=== PATIENT | female | born 1970 | race Caucasian/White ===

== ENCOUNTER → 2020-08-09 08:13 | Outpatient (CLI) | payer OTHER, SELFPAY ==
--- NOTE | 2020-08-09 08:15 | BI_ITS ---
MAMMOGRAPHY - BILATERAL SCREENING REASON FOR EXAM: Female, 50 years old. Routine annual screening examination. PERTINENT HISTORY: Non-contributory. TECHNIQUE: Digital bilateral breast fartun (3D mammographic acquisition) in the CC and MLO projections. 2-D mediolateral oblique (MLO) and craniocaudad (CC) views of both breasts were obtained. CAD: Full Field Digital Mammography with Computer Added Detection was performed. COMPARISON: Comparison is made with prior study dated 04/01/2015 and 03/06/2014. FINDINGS: Breast Composition: The breasts are extremely dense, which lowers the sensitivity of mammography. There are no dominant masses or suspicious calcifications. No other significant abnormalities are identified. There has been no significant change since the prior study. BI/SCRN MAMM (CAD)W/FARTUN BILAT IMPRESSION: Stable bilateral screening mammogram. Yearly follow-up mammogram recommended. (A) ASSESSMENT CATEGORY: BIRADS Category 1: Negative. A letter regarding these results will be sent to the patient by the facility within 30 days. Approximately 10% of breast cancers are not detected by mammography. A normal mammogram should not delay biopsy of a clinically suspicious abnormality. [id number] Electronically Signed: Logan Martínez MD at 9:21 EDT , Service support ,
== END ==
PROVIDERS: PCP Family Medicine; Referring Provider Obstetrics & Gynecology Gynecology; Visit Provider Obstetrics & Gynecology Gynecology
DX: Z01.419 Encounter for gynecological examination (general) (routine) without abnormal findings (principal); Z12.31 Encounter for screening mammogram for malignant neoplasm of breast
CPT/HCPCS: 77063; 77067

== ENCOUNTER → 2021-08-19 | Outpatient (CLI) | payer OTHER, SELFPAY ==
--- NOTE | 2021-08-19 10:50 | BI_ITS ---
MAMMOGRAPHY - BILATERAL SCREENING REASON FOR EXAM: Female, 51 years old. Routine annual screening examination. PERTINENT HISTORY: Non-contributory. TECHNIQUE: Digital bilateral breast fartun (3D mammographic acquisition) in the CC and MLO projections. 2-D mediolateral oblique (MLO) and craniocaudad (CC) views of both breasts were obtained. CAD: Full Field Digital Mammography with Computer Added Detection was performed. COMPARISON: Comparison is made with prior study dated 08/09/2020 and 03/12/2015. FINDINGS: Breast Composition: The breasts are extremely dense, which lowers the sensitivity of mammography. There are no dominant masses or suspicious calcifications. No other significant abnormalities are identified. There has been no significant change since the prior study. BI/SCRN MAMM (CAD)W/FARTUN BILAT IMPRESSION: Stable bilateral screening mammogram. Yearly follow-up mammogram recommended. (A) ASSESSMENT CATEGORY: BIRADS Category 1: Negative. A letter regarding these results will be sent to the patient by the facility within 30 days. Approximately 10% of breast cancers are not detected by mammography. A normal mammogram should not delay biopsy of a clinically suspicious abnormality. [id number] Electronically Signed: Logan Martínez MD at 12:27 EDT ,
== END | disposition home or self-care (01) ==
LOC: OPBI 10:48
PROVIDERS: PCP Family Medicine
DX: Z12.31 Encounter for screening mammogram for malignant neoplasm of breast (principal)
CPT/HCPCS: 77063; 77067

== ENCOUNTER → 2023-10-05 | Outpatient (CLI) | payer OTHER, SELFPAY ==
--- NOTE | 2023-10-05 16:26 | BI_ITS ---
MAMMOGRAPHY - BILATERAL SCREENING REASON FOR EXAM: Female, 53 years old. Routine annual screening examination. PERTINENT HISTORY: Non-contributory. TECHNIQUE: Digital bilateral breast fartun (3D mammographic acquisition) in the CC and MLO projections. 2-D mediolateral oblique (MLO) and craniocaudad (CC) views of both breasts were obtained. CAD: Full Field Digital Mammography with Computer Added Detection was performed. COMPARISON: Comparison is made with prior study dated August 19, 2021 and August 09, 2020. FINDINGS: Breast Composition: The breasts are extremely dense, which lowers the sensitivity of mammography. There are no dominant masses or suspicious calcifications. No other significant abnormalities are identified. There has been no significant change since the prior study. BI/SCRN MAMM (CAD)W/FARTUN BILAT IMPRESSION: Stable bilateral screening mammogram. Yearly follow-up mammogram recommended. (A) ASSESSMENT CATEGORY: BIRADS Category 1: Negative. A letter regarding these results will be sent to the patient by the facility within 30 days. Approximately 10% of breast cancers are not detected by mammography. A normal mammogram should not delay biopsy of a clinically suspicious abnormality. [id number] Electronically Signed: Logan Martínez MD at 8:27 EDT ,
== END | disposition home or self-care (01) ==
LOC: OPBI 16:24
PROVIDERS: PCP Family Medicine; Referring Provider Obstetrics & Gynecology Gynecology; Visit Provider Obstetrics & Gynecology Gynecology
DX: Z01.419 Encounter for gynecological examination (general) (routine) without abnormal findings (principal); Z12.31 Encounter for screening mammogram for malignant neoplasm of breast
CPT/HCPCS: 77063; 77067

== ENCOUNTER → 2024-08-25 | Outpatient (CLI) | payer OTHER, SELFPAY ==
--- OUTSIDE RECORDS SUMMARY | 2024-08-25 08:06 | XMS RPT_ITS | CCD ---
Author Organization [facility] Inform ion Partnership [facility] Care Team Providers Care Watch Dial Maker Name Role Phone Trini Soto MD Primary Care Provider DEBBI HUITRON MD Attending Unavailable DR TRINI SOTO MD Primary Care Unavailab le Trini Soto MD Primary Care Provider DR TRINI SOTO MD Primary Care Physician Trini Soto MD Primary Care Provider Trini Soto Primary Care Unavailable Debbi Huitron Referring Unavailable Debbi Huitron Attending Unavailable Allergies Allergy Classification Reported Allergen(s) Allergy Type Date of Onset Reaction(s) Facility (4 sources) Penicillins Propensity to adverse reactions 03-20-2004 [facility] (1 source) Penicillin; Translations: [penicillin] Drug Allergy rash [facility] Problems Problem Classification Problem Date Documented Da te Episodic/Chronic Coagulation and hemorrhagic disorders (4 sources) Platelet count below reference range; Translations: [Thrombocytopenia , unspecified] Onset: 03-20-2004 02-24-2018 Chronic Other screening for suspected conditions (not mental disorders or infectious disease) (2 sources) Patient encounter status; Translations: [Encounter for screening mammogram for malignant neoplasm of breast] 09-23-2022 Episodic Results Test Name Value Interpretation Reference Range Facil ity SCRN MAMM (CAD)W/FARTUN Castellanos n 10-05-2023 SCRN MAMM (CAD)W/FARTUN KRAMER [facility] Imaging Services [address] [place] [id number] SCRN MAMM (CAD)W/FARTUN KRAMER MR#: [id number] Acct: [id number] Name: TWILA LINDQUIST Rep #: [id number] : 1970 F 53 From: Logan cespedes MD PCP: Dr. Trini Soto MD Status: REG [facility] Study: SCRN MAMM (CAD)W/FARTUN BILAT Date of Exam: 09/09 08/31 Exam# [id number] Ordering Dr: Debbi Huitron MD [id number] MAMMOGRAPHY - BILATERAL SCREENING REASON FOR EXAM: Female, 53 years old. Routine annual screening examination. PERTINENT HISTORY: Non-contributory. TECHNIQUE: Digital bilateral breast fartun (3D mammographic acquisition) in the CC and MLO projections. 2-D mediolateral oblique (MLO) and craniocaudad (CC) views of both breasts were obtained. CAD: Full Field Digital Mammography with Computer Added Detection was performed. COMPARISON: Comparison is made with prior study dated August 19, 2021 and August 09, 2020. FINDINGS: Breast Composition: The breasts are extremely dense, which lowers the sensitivity of mammography. There are no dominant masses or suspicious calcifications. No other significant abnormalities are identified. There has been no significant change since the prior study. BI/SCRN MAMM (CAD)W/FARTUN BILAT IMPRESSION: Stable bilateral screening mammogram. Yearly follow-up mammogram recommended. (A) ASSESSMENT CATEGORY: BIRADS Category 1: Negative. A letter regarding these results will be sent to the patient by the facility within 30 days. Approximately 10% of breast cancers are not detected by mammography. A normal mammogram should not delay biopsy of a clinically suspicious abnormality. [id number] Electronically Signed: Logan Martínez MD at 8:27 EDT , CC: Dr. Debbi Huitron MD; Dr. Trini Soto MD Manager Camp: Signed [facility] 01-30-2022 CNPN Telephone (FAMPWS) TWILA LINDQUIST ([id number]) 1970 F Date Time Provider Department 01/30/22 [facility] During your visit today, we recorded the following information about you: Lilliam Ness RN 01/30/2022 3:07 PM Addendum FYI-Patient calling and states she tested positive for covid using a home test today. She reports her symptoms began today and she has sinus pressure and a temperature of 100.8. Denies cough, SOB, chest pain, sore throat, body aches, nausea, vomiting or diarrhea. Has been vaccinated. Exercised this morning. Patient had questions regarding paxlovid and information reviewed. Pt has decided she is not interested in paxlovid at this time however has been encouraged to contact PCP office in the next few days for any questions, or if symptoms worsen, and a VV can be scheduled to discuss options. CDC isolation guidelines and home care information were reviewed also. AMENA Marti MD 01/30/2022 3:32 PM Signed Noted; I agree with symptomatic treatment; she does not have any medical conditions that would make her high risk and qualified for paxlovid treatment Trini Soto MD Allergies As of Date: 01/30/2022 Noted Allergy Reaction PENICILLINS 03/20/2004 Date Reviewed: 08/26/2021 Reviewed by: Reny Trevizo Ma - Fully Assessed Reason for Visit: Patient Update [1234] Meds Comments as of 08/26/2021: Takes Probiotic daily. Problem List As Of Date 01/30/2022 Noted Resolved Thrombocytopenia, unspecified (HCC) [D69.6] 03/20/2004 Encounter Status:Closed by PIYUSH SINGH on 01/30/22 Normal [facility] Vital Signs Date Time Vital Sign Value Performing Clinician Marla zavaleta 08-26-2021 09:08-0400 Body height 170.8 cm Trini Soto MD Work Phone: [facility] 08-26-2021 09:08-0400 Body weight 58.42 kg Trini Soto MD Work Phone: [facility] 08-26-2021 09:08-0400 Diastolic blood pressure 74 mm[Hg] Trini Soto MD Work Phone: [facility] 08-26-2021 09:08-0400 Heart rate 64 /min Trini Soto MD Work Phone: [facility] 08-26-2021 09:08-0400 Respiratory rate 12 /min Trini Soto MD Work Phone: [facility] 08-26-2021 09:08-0400 Systolic blood pressure 102 mm[Hg] Trini Soto MD Work Phone: [facility] Encounters Encounter Date Encounter Type Care Provider Facility Start: 10-15-2023 Encounter for gynecological examination (general) (routine) without abnormal findings Debbi Huitron [facility] Start: 10-05-2023 End: 10-05-2023 ambulatory Tirni Soto Facility:[facility] Start: 09-01-2023 ambulatory Trini nolan MD Work Phone: [facility] Start: 10-02-2022 End: 10-02-2022 Patient encounter procedure DEBBI HUITRON MD [facility] Start: 09-23-2022 ambulatory Trini nolan MD Work Phone: [facility] Start: 09-14-2022 ambulatory DEBBI HUITRON MD Facilit y:B Start: 01-30-2022 Telephone encounter Trini so MD Work Phone: [facility] Comment on above: Patient Update Start: 08-26-2021 End: 08-26-2021 Patient encounter procedure Trini Soto MD Work Phone: [facility] [place] Comment on above: Wellness examination (Primary Dx) Start: 08-26-2021 End: 08-26-2021 Patient encounter status Trini Soto MD Work Phone: [facility] [place] Start: 08-19-2021 End: 08-19-2021 Patient encounter procedure [facility] Procedures Date Procedure Procedure Detail Performing Clinician Start: 08-26-2021 Adult depression scr eening assessment Trini Soto MD Work Phone: Start: 08-26-2021 Lipid 1996 panel - S justice or Plasma Trini Soto MD Work Phone: Start: 08-19-2021 End: 08-19-2021 Mammography Trini Soto MD Work Phone: Start: 12-15-2019 Colonoscopy Trini mueller MD Work Phone: None (qualifier value) GRAY HUITRON MD Plan of Treatment Date Care Activity Detail Author Start: 12-14-2029 Colonoscopy COLONOSCOPY [facility] Start: 12-14-2029 COLORECTAL CANCER SCREENING COLORECTAL CANCER SCREENING [facility] Start: 12-14-2029 Screening for malign ant neoplasm of colon [facility] Start: 03-01-2028 Urine microalbumin profile [facility] Start: 08-26-2026 Lipid panel Lipid Screening [facility] Start: 08-26-2026 LIPID SCREEN LIPID SCREEN [facility] Start: 08-26-2024 [facility]ABET[facility] Start: 08-26-2024 Diabetes Screening Diabetes Screenin g [facility] Start: 07-30-2024 HPV TESTING HPV TESTING [facility] Start: 07-26-2024 PAP TESTING PAP TESTING [facility] Start: 10-10-2023 Influenza vaccination Influenza Vacc ine (#1) [facility] Start: 03-19-2023 LIPID SCREEN LIPID SCREEN [facility] Start: 10-09-2022 Covid-19 Vaccine (5 - 2023-24 season) Covid-19 Vaccine ( season) [facility] Start: 10-09-2022 Influenza vaccination INFLUENZA (#1) [facility] Start: 08-26-2022 Adult depression screening assessment DEPRESSION SCREENING [facility] Start: 08-26-2022 HEPATITIS C SCREENING HEPATITIS C SC [facility] Comment on above: Postponed from 05/20 (Declined at this time) Start: 08-19-2022 Mammography MAMMOGRAM [facility] Start: 08-19-2022 Screening for malign ant neoplasm of breast Mammogram Screening [facility] Start: 07-26-2022 Screening for malign ant neoplasm of cervix Cervical Cancer Screening [facility] Start: 02-08-2022 DEPRESSION ASSESSMENT DEPRESSION ASS ESSMENT [facility] Start: 10-09-2021 Influenza vaccination INFLUENZA (#1) [facility] Start: 09-02-2021 COVID-19 VACCINE (5 - Booster for Pfizer series) COVID-19 VACCINE (5 - Booster for Pfizer series) [facility] Start: 09-02-2021 COVID-19 VACCINE (5 - Pfizer series) COVID-19 VACCINE (5 - Pfizer series) [facility] Start: 08-26-2021 End: 10-26-2021 25-hydroxyvitamin D3 [Mass/volume] in Serum or Plasma [facility] Work Phone: Comment on above: Expected: 08/26/2021 , Expires: 10/26/2021 Start: 08-26-2021 End: 10-26-2021 CBC W Auto Differential panel - Blood [facility] Work Phone: Comment on above: Expected: 08/26/2021 , Expires: 10/26/2021 Start: 08-26-2021 End: 10-26-2021 Comprehensive metabolic 2000 panel - Serum or Plasma [facility] Work Phone: Comment on above: Expected: 08/26/2021 , Expires: 10/26/2021 Start: 08-26-2021 End: 10-26-2021 Lipid 1996 panel - Serum or Plasma [facility] Work Phone: Comment on above: Expected: 08/26/2021 , Expires: 10/26/2021 Start: 03-19-2021 DIABETES SCREEN DIABETES SCREEN [facility] Start: 02-08-2021 DEPRESSION ASSESSMENT DEPRESSION ASS ESSMENT [facility] Start: 2018 SHINGRIX VACCINE (1 of 2) SHINGRIX VACCINE (1 of 2) [facility] Start: 2013 COLOGUARD (FIT-DNA) COLOGUARD (FIT-D NA) [facility] Start: [address] COLONOGRAPHY [facility] Start: 2013 FECAL OCCULT BLOOD FECAL OCCULT BLOO D [facility] Start: 2013 Screening for malign ant neoplasm of colon [facility] Start: 2013 SIGMOIDOSCOPY SIGMOIDOSCOPY [facility] Start: 05-21-1987 Hepatitis B Vaccine (1 of 3 - 19+ 3-dose series) Hepatitis B Vaccine (1 of 3 - 19+ 3-dose series) [facility] Start: 1986 Anxiety Screening Anxiety Screening [facility] Start: 1986 Depression Screening Depression Scre ening [facility] Start: 1986 HEPATITIS C SCREENING HEPATITIS C SC [facility] Start: 1986 Hepatitis C screening Hepatitis C [facility] Start: 1970 HEPATITIS B (1 of 3 - 3-dose series) HEPATITIS B (1 of 3 - 3-dose series) [facility] End: 09-30-2024 DBT Breast - bilateral screening CRISPIN SCREENING W FARTUN Radiology Routine Encounter for screening mammogram for breast cancer 1 Occurrences starting 09/01/2023 until 09/30/2024 [facility] Work Phone: Comment on above: 1 Occurrences starti ng 09/01/2023 until 09/30/2024 End: 10-23-2023 CRISPIN SCREENING CRISPIN SCREENING Radiology Routine Encounter for screening mammogram for breast cancer 1 Occurrences starting 09/23/2022 until 10/23/2023 [facility] Work Phone: Comment on above: 1 Occurrences starti ng 09/23/2022 until 10/23/2023 Immunizations Immunization Date Immunization Notes Care Provider Christin barney 12-25-2019 influenza virus vaccine, unspecified formulation Trini Soto MD Work Phone: [facility] 12-07-2019 influenza, seasonal, injectable Trini Soto MD Work Phone: [facility] 03-01-2018 tetanus toxoid, reduced diphtheria toxoid, and acellular pertussis vaccine, adsorbed Trini Soto MD Work Phone: [facility] Work Phone: Payers Date Payer Category Payer Self-pay [id number] 2023 Unknown [id number] 2022 Unknown [id number] 2019 Unknown [employer] PPO [id number] 2019-Present [phone] [address] [place] [address] PPO [id number] 2019 Unknown [id number] 1970 Unknown [id number] Private Health Insurance [facility] [id number] Unknown [id number] Unknown 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 (finding) [facility] Start: 1970 Sex Assigned At Not on file [facility] Start: 08-16-2021 End: 08-26-2021 Exposure to SARS-CoV-2 (event) Not sure [facility] Start: 1970 Sex Assigned At Female [facility] Start: 02-24-2018 Tobacco use and exposure Smoke less tobacco non-user [facility] Start: 08-26-2021 End: 03-06-2022 History of Social function [facility] Start: 08-26-2021 End: 03-06-2022 Tobacco use panel [facility] Adult Depression Scr eening Assessment 0 [facility] Clinical Notes 08-26-2021 to 09-23-2022 Telephone Encounter - Trini Soto MD - 01/30/2022 3:31 PM ESTTelephone Encounter - Lilliam Ness RN - 01/30/2022 3:00 PM Shabbir Soto MD - 08/26/2021 9:00 AM EDT Note Date & Type Note Facility 09-23-2022 Note Patient Outreach (IN TMMN) TWILA LINDQUIST ([id number]) 1970 F Date Time Provider Department 09/23/22 TRINI SOTO During your visit today, we recorded the following information about you: Allergies As of Date: 09/23/2022 Noted Allergy Reaction PENICILLINS 03/20/2004 Date Reviewed: 08/26/2021 Reviewed by: Reny Trevizo Ma - Fully Assessed Visit Diagnosis:Encounter for screening mammogram for breast cancer [Z12.31] Order(s):CRISPIN SCREENING [[id number]] Order #: [id number] FUTURE Meds Comments as of 08/26/2021: Takes Probiotic daily. Problem List As Of Date 09/23/2022 Noted Resolved Thrombocytopenia, unspecified (HCC) [D69.6] 03/20/2004 Encounter Status:Closed by LISA ROMAN on 09/28/22 [facility] 01-30-2022 Miscellaneous Notes Formattin g of this note might be different from the original. Noted; I agree with symptomatic treatment; she does not have any medical conditions that would make her high risk and qualified for paxlovid treatment Trini Soto MD FYI-Patient calling and states she tested positive for covid using a home test today. She reports her symptoms began today and she has sinus pressure and a temperature of 100.8. Denies cough, SOB, chest pain, sore throat, body aches, nausea, vomiting or diarrhea. Has been vaccinated. Exercised this morning. Patient had questions regarding paxlovid and information reviewed. Pt has decided she is not interested in paxlovid at this time however has been encouraged to contact PCP office in the next few days for any questions, or if symptoms worsen, and a VV can be scheduled to discuss options. CDC isolation guidelines and home care information were reviewed also. Lilliam Ness RN documented in this encounter [facility] 08-26-2021 History of Presen t illness Narrative Chief Complaint Patient presents with: Wellness HPI Twila Lindquist is a 51 year old female who presents here today for physical. Pt has not been seen since Feb [address] Galloway. Has not seen Dr. Soto since 2008. Requesting labs for her Wellness Exam. Pt recently earned a Masters in , will be starting a new job at [employer] ([employer]) in September. Pt has one son age 19, starting College in [place] for [employer]y GI/Uro - No bowel, Gi, or urinary issues. Takes daily OTC Probiotic. Colonoscopy done by Dr. Serrano Dec 2019. Possible FHx of Colon Cancer. Cardio - Denies any chest pain, dizziness, or SOB. 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 Debbi Cason at [place], seen last week why physical exam. Had Pap/HPV 2019. Mammogram done last week as well. It was suggested by Dr. Cason that she have labs and be checked for Vitamin D but pt is out in the sun a lot. Diet/Exercise - Very active and always trying to stay fit. Pt runs, walking, hikes and does bar classes. Does try to watch her diet, avoid gluten, breads and sweets. Eats a lot of greens/vegetables and some fruits. Does eat some meat, rare red meat. Pt at this time states that she feels she sleeps well. Notes stress is currently well managed, notes this will probably increase with starting her new job in September. Denies any depression symptoms. HM - Declines Hep C Screening. Declines Depression symptoms. Past medical history, appointments, medications, allergies reviewed. Previous Medical History PAST MEDICAL HISTORY Diagnosis Date NEGATIVE MEDICAL HISTORY Previous Surgical History PAST SURGICAL HISTORY Procedure Laterality Date COLONOSCOP W/ OR W/O [facility] SPEC 12/15/2019 Colonoscopy NONE Family History FAMILY HISTORY Problem Relation Age of Onset Hypertension Mother Lipids Father Hypertension Father Cancer Paternal Grandmother Patient Allergies ALLERGIES Allergen Reactions Penicillins Current Medications No current outpatient medications on file prior to visit. No current facility-administered medications on file prior to visit. Social History Social History Tobacco Use Smoking status: Never Smoker Smokeless tobacco: Never Used Substance Use Topics Alcohol use: No Drug use: No EXAM: BP 102/74 (BP Site: Left Arm, BP Position: Sitting, BP Cuff Size: Regular Adult) Pulse 64 Resp 12 Ht 170.8 cm (5' 7.25) Wt 58.4 kg (128 lb 12.8 oz) LMP 11/14/2014 BMI 20.02 kg/m General Appearance: Well appearing, alert, in no acute distress, well-hydrated, well nourished.. Neck: Supple, no adenopathy; thyroid symmetric, normal size, no bruits. Lungs: Lungs clear to auscultation. No wheezing, rhonchi, rales.. Heart: RRR without murmur, gallop, or rubs. No ectopy. Abdomen: Normal abdominal exam, Abdomen soft, non-tender. Bowel sounds normal. No masses, organomegaly. Health Maintenance List DEPRESSION SCREENING Never done - Declines HEPATITIS C SCREENING Never done - Declines PAP TESTING Never done - Completed HPV TESTING Never done - Completed SHINGRIX VACCINE(1 of 2) Never done COVID-19 VACCINE(3 - Booster for Pfizer series) due on 10/16/2020 DIABETES SCREEN due on 03/19/2021 INFLUENZA(1) due on 10/09/2021 MAMMOGRAM due on 08/19/2022 LIPID SCREEN due on 03/19/2023 DTAP,TDAP,TD(2 - Td or Tdap) due on 03/01/2028 COLORECTAL CANCER SCREENING due on 12/14/2029 HIV SCREENING Completed Data reviewed None ASSESSMENT/PLAN: 1. Wellness examination - ICD9: V70.0, ICD10: Z00.00 (primary diagnosis) - Counseled on healthy diet and regular exercise. - Check labs fasting Complete fasting labs, will call with results. Follow up in 2-3 years I agree with the Chief Complaint, ROS, and Past Histories independently gathered by the clinical community support worker and the remaining scribed note accurately describes my personal service to the patient. Trini Soto MD The documentation for this note was completed by Reny Trevizo Ma acting as scribe for Trini Soto MD. August 26, 2021 9:15 AM. Reny Trevizo Ma documented in this encounter [facility] Evaluation + Plan note No data available for this section [facility] Evaluation note Diagnosis Wellness examination- Primary documented in this encounter [facility] noteNo assessment information availableWSelect [facility] Work Phone: Evaluation note* Diagnosis Encounter for screening mammogram for breast cancer documented in this encounter [facility] note* Diagnosis Encounter for screening mammogram for breast cancer [facility] No data available for this section [facility] Progress note No data available for this section [facility] Reason for referral (narrative)* Diagnostic Procedure Only (Routine) - Pending Review Specialty Diagnoses / Procedures Referred By Contac t Referred To Contact [facility] Diagnoses Encounter for screening mammogram for breast cancer Procedures CRISPIN SCREENING SCREENING MAMMOGRAPHY BI 2-VIEW BREAST INC CAD Trini Soto MD [address] [place] [address] [facility] [address] [place] [address] Referral ID Status Reason Start Date Expiration Date Visits Requested Visits Authorized [id number] Pending Review Auto-Generat ed Referral 09/23/2022 10/23/2023 1 1 [facility] Diagnostic Procedure Only (Routine) - New Request Specialty Diagnoses / Procedures Referred By Contac t Referred To Contact [facility] Diagnoses Encounter for screening mammogram for breast cancer Procedures CRISPIN SCREENING W FARTUN SCREENING DIGITAL BREAST TOMOSYNTHESIS BI SCREENING MAMMOGRAPHY BI 2-VIEW BREAST INC Trini Jeffers MD [address] [place] [address] [facility] [address] [place] [address] Referral ID Status Reason Start Date Expiration Date Visits Requested Visits Authorized [id number] New Request Auto-Generat ed Referral 09/01/2023 09/30/2024 1 1 [facility] Advance Directives No Advanced Directives Records FoundDocuments on File Type Date Recorded Patient Front End Technician Expl anation Advance Directive(s) 12/15/2019 6:54 AM Advance Directive(s) 12/08/2019 1:25 PM Chief Complaint and Reason for Visit Chief Complaint SCREENING Summary Purpose Family History No Family History Records FoundNo Family History Records Found No data available for this section No Family History Records Found Additional Source Comments Source Comments (unrecognize d section and content) In the event this informatio n is protected by the Federal Confidentiality of Alcohol and Drug Abuse Patient Records regulations: The Federal rules restrict any use of the information to criminally investigate or prosecute any alcohol or drug abuse patient.[facility] the event this information is protected by the Federal Confidentiality of Alcohol and Drug Abuse Patient Records regulations: The Federal rules restrict any use of the information to criminally investigate or prosecute any alcohol or drug abuse patient.[facility] the event this information is protected by the Federal Confidentiality of Alcohol and Drug Abuse Patient Records regulations: The Federal rules restrict any use of the information to criminally investigate or prosecute any alcohol or drug abuse patient.[facility] the event this information is protected by the Federal Confidentiality of Alcohol and Drug Abuse Patient Records regulations: The Federal rules restrict any use of the information to criminally investigate or prosecute any alcohol or drug abuse patient.[facility] Reason for Visit (unrecogniz ed section and content) Reason Comments Wellness Specialty Diagnoses / Procedures Referred By Contac t Referred To Contact Family Practice / FAMILY MEDICINE Diagnoses Annual physical exam Annual / Physical Procedures OFFICE/OUTPATIENT ESTABLISHED MOD MDM 30-39 MIN 4C MD David Gold, Trini Villalba MD [address] [place] [address] Referral ID Status Reason Start Date Expiration Date Visits Re quested Visits Authorized [id number] Closed 08/26/2021 02/07/2022 1 1 Reason Comments Patient Update Care Teams (unrecognized sec tion and content) Watch Dial Maker Relationship Specialty Start Date End Date Trini Soto MD [address], [place] [id number] PCP - General 10/25/08 Watch Dial Maker Relationship Specialty Start Date End Date Trini Soto MD [address] [place] [address] PCP - General 10/25/08 Watch Dial Maker Relationship Specialty Start Date End Date Trini Soto MD [address] [place] [address] PCP - General 10/25/08 Watch Dial Maker Relationship Specialty Start Date End Date Trini Soto MD [address], [place] [id number] PCP - General 10/25/08 Goals (unrecognized section and content) Goals may be documented in a n alternate sectionGoals may be documented in an alternate sectionGoals may be documented in an alternate section No data available for this section INFORMATION SOURCE (unrecogn ized section and content) DATE CREATED AUTHOR 09/14/2022 [facility] ([place]) DATE CREATED AUTHOR AUTHOR'S ORGANIZ ATION 09/28/2022 [facility] DATE CREATED AUTHOR AUTHOR'S ORGANIZ ATION 10/17/2023 [facility] FOR RECORDS PERTAINING TO PATIENTS WHO ARE OR HAVE BEEN ENROLLED IN A CHEMICAL DEPENDENCY/SUBSTANCEABUSE PROGRAM, SOME INFORMATION MAY BE OMITTED. This clinical summary was aggregated from multiple sources. Caution should be exercised in using it in the provision of clinical care. This summary normalizes information from multiple sources, and as a consequence, information in this document may materially change the coding, format and clinical context of patient data. In addition, data may be omitted in some cases. CLINICAL DECISIONS SHOULD BE BASED ON THE PRIMARY CLINICAL RECORDS. [facility] [employer] [facility]. provides no warranty or guarantee of the accuracy or completeness of information in this document.
[2024-08-25 10:43] LABS: Hematocrit 38.8 % (37-47); Hemoglobin 12.8 g/dL (12.0-15.0); Mean Corp Hgb Conc 33.0 g/dL (32-36); Mean Corpuscular Volume 94.2 fL (81-99); Mean Platelet Vol. 11.8 fl (6.2-12.0); Platelet Count 143 K/mm3 (150-450); RBC Distribution Width CV 13.8 % (11.6-14.6); RBC Distribution Width SD 48.0 fl (35.1-43.9); Red Blood Count 4.12 M/mm3 (4.2-5.4); White Blood Count 4.9 K/mm3 (4.4-11.0)
[2024-08-25 12:27] LABS: AST(SGOT) 17 U/L (<=31); Alanine Aminotransfer ALT/SGPT 16 U/L (<=34); Albumin, Serum 4.4 g/dL (3.5-5.0); Alkaline Phosphatase 47 U/L (35-104); Anion Gap 10 (5-15); BUN 14 mg/dL (4-19); BUN/Creat Ratio 16.1 RATIO (10-20); Calcium,Total 9.6 mg/dL (7.6-11.0); Carbon Dioxide 25.4 mmol/L (21.0-32.0); Chloride 106 mmol/L (98-108); Cholesterol 246 mg/dL (<=200); Globulin 2.6 g/dL (2.2-4.2); Glucose 89 mg/dL (70-99); Low Density Lipoprotein Calc. 147 mg/dL; Potassium 4.1 mmol/L (3.3-5.1); Triglycerides 44 mg/dL; Very Low Density Lipoprotein 9 mg/dL (5-40); cholesterol:hdl ratio screen 2.73
[2024-08-28 12:08] LABS: Vitamin D 1,25-Dihydroxy 35.2 pg/mL (24.8-81.5)
== END | disposition home or self-care (01) ==
LOC: MTLAB 07:46
PROVIDERS: PCP Family Medicine; Referring Provider Family Medicine; Visit Provider Family Medicine
DX: Z01.419 Encounter for gynecological examination (general) (routine) without abnormal findings (principal); Z13.1 Encounter for screening for diabetes mellitus; L65.9 Nonscarring hair loss, unspecified; Z13.220 Encounter for screening for lipoid disorders
CPT/HCPCS: 36415; 80053; 80061; 82652; 84443; 85027

== ENCOUNTER → 2025-02-06 | Outpatient (CLI) | payer OTHER, SELFPAY ==
--- NOTE | 2025-02-06 07:37 | BI_ITS ---
EXAM: SCRN MAMM (CAD)W/FARTUN BILAT DATE: 02/06/2025 CLINICAL HISTORY: F, Age 54 y/o , SCREENING Routine screening TECHNIQUE: Procedure Code: [id number] Modality: MG Procedure: SCRN MAMM (CAD)W/FARTUN BILAT COMPARISON: Prior exam(s) dated 10/05/2023. FINDINGS: TISSUE DENSITY: The breasts are heterogeneously dense, which may obscure small masses. Bilateral Breast Mammographic Findings: No significant masses, calcifications or other abnormalities are identified. No interval change BI/SCRN MAMM (CAD)W/FARTUN BILAT IMPRESSION: Stable screening mammogram, no suspicious findings OVERALL FINAL ASSESSMENT BI-RADS 1: NEGATIVE. RECOMMENDATION: Routine annual follow-up in 1 Year Additional Recommendation none A letter with findings and recommendations will be mailed to the patient. Reading Location: [id number]
--- OUTSIDE RECORDS SUMMARY | 2025-02-06 07:42 | XMS RPT_ITS | CCD ---
Author Organization [facility] Care Team Providers Care Swimming Pool Serviceperson Name Role Phone Trini Soto MD Primary Care Provider DEBBI HUITRON MD Attending Unavailable DR TRINI SOTO MD Primary Care Unavailab le Trini Soto MD Primary Care Provider DR TRINI SOTO MD Primary Care Physician Trini Soto MD Primary Care Provider [phone] Dr. 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, Bj Unavailable Allergies Allergy Classification Reported Allergen(s) Allergy Type Date of Onset Reaction(s) Facility (4 sources) Penicillins Propensity to adverse reactions 03-20-2004 [facility] (1 source) Penicillin; Translations: [penicillin] Drug Allergy rash [facility] (1 source) Penicillins Propensity to adverse reactions 03-20-2004 [facility] Problems Active Problems Problem Classification Problem Date Documented Da te Episodic/Chronic Coagulation and hemorrhagic disorders (5 sources) Platelet count below reference range; Translations: [Thrombocytopenia , unspecified] Onset: 03-20-2004 02-24-2018 Chronic Other screening for suspected conditions (not mental disorders or infectious disease) (3 sources) Patient encounter status; Translations: [Encounter for screening mammogram for malignant neoplasm of breast] 09-23-2022 Episodic Past or Other Problems Problem Classification Problem Date Documented Da te Episodic/Chronic Unclassified (1 source) Patient encounter status 08-01-2024 Results Test Name Value Interpretation Reference Range Facility Vitamin D 1,25-Dihydroxyon 0 08-28-2024 VIT D 1,25 DIHY 35.2 pg/mL Normal 24.8-81.5 [facility] Comment on above: Order Comment: Order Date: 08/21/24 Order Info: [id number] - [id number] Result Comment: Perf ormed at: - [facility] [address] [id number] [place] Boss: Bebeto Valdez MD, Phone: [phone] Performed By: #### L 4450.0960 #### [facility] [address] [place], [place], [id number] Anion gap in Serum or Plasma Ordered By: Vik Zimmer on 08-25-2024 Anion gap [Moles/Vol] 10 mmol/L 5-15 [facility] BUN/creatinine ratioOrdered By: Vik Zimmer on 08-25-2024 Urea nitrogen/Creatinine [Mass ratio] 16.1 mg/mg 10-20 [facility] Bilirubin, totalOrdered By: [facility] on 08-25-2024 Bilirubin [Mass/Vol] 0.29 mg/dL 0.00-1.30 [facility] CBC-Complete Blood Cnt No Di ffon 08-25-2024 Erythrocyte distribution width (RBC) [Ratio] 13.8 % Normal 11.6-14.6 [facility] Comment on above: Order Comment: Order Date: 08/21/24 Order Info: [id number] - CBC Performed By: #### L 500.4050, L100.0500, L500.4100, L501.9520 #### [facility] [address] [place], [place], [address] Hematocrit (Bld) [Volume fraction] 38.8 % Normal 37-47 [facility] Comment on above: Order Comment: Order Date: 08/21/24 Order Info: [id number] - CBC Performed By: #### L 500.4050, L100.0500, L500.4100, L501.9520 #### [facility] [address] [place], [address] Hemoglobin (Bld) [Mass/Vol] 12.8 g/dL Normal 12.0-15.0 [facility] Comment on above: Order Comment: Order Date: 08/21/24 Order Info: [id number] - CBC Performed By: #### L 500.4050, L100.0500, L500.4100, L501.9520 #### [facility] [address] [place], [address] MCH (RBC) [Entitic mass] 31.1 pg Normal 27.0-32.0 [facility] Comment on above: Order Comment: Order Date: 08/21/24 Order Info: [id number] - CBC Performed By: #### L 500.4050, L100.0500, L500.4100, L501.9520 #### [facility] [address] [place], [address] MCHC (RBC) [Mass/Vol] 33.0 g/dL Normal 32-36 [facility] Comment on above: Order Comment: Order Date: 08/21/24 Order Info: [id number] - CBC Performed By: #### L 500.4050, L100.0500, L500.4100, L501.9520 #### [facility] [address] [place], [address] MCV (RBC) [Entitic vol] 94.2 fL Normal 81-99 [facility] Comment on above: Order Comment: Order Date: 08/21/24 Order Info: [id number] - CBC Performed By: #### L 500.4050, L100.0500, L500.4100, L501.9520 #### [facility] [address] [place], [address] Platelet mean volume (Bld) [Entitic vol] 11.8 fL Normal 6.2-12.0 [facility] Comment on above: Order Comment: Order Date: 08/21/24 Order Info: [id number] - CBC Performed By: #### L 500.4050, L100.0500, L500.4100, L501.9520 #### [facility] [address] [place], [address] Platelets (Bld) [#/Vol] 143 10*3/uL Low 150-450 [facility] Comment on above: Order Comment: Order Date: 08/21/24 Order Info: [id number] - CBC Performed By: #### L 500.4050, L100.0500, L500.4100, L501.9520 #### [facility] [address] [place], [address] RBC (Bld) [#/Vol] 4.12 10*6/uL Low 4.2-5.4 [facility] Comment on above: Order Comment: Order Date: 08/21/24 Order Info: [id number] - CBC Performed By: #### L 500.4050, L100.0500, L500.4100, L501.9520 #### [facility] [address] [place], [address] RDW SD 48.0 fl High 35.1-43.9 [facility] Comment on above: Order Comment: Order Date: 08/21/24 Order Info: [id number] - CBC Performed By: #### L 500.4050, L100.0500, L500.4100, L501.9520 #### [facility] [address] [place], [address] WBC (Bld) [#/Vol] 4.9 10*3/uL Normal 4.4-11.0 [facility] Comment on above: Order Comment: Order Date: 08/21/24 Order Info: [id number] - CBC Performed By: #### L 500.4050, L100.0500, L500.4100, L501.9520 #### [facility] [address] [place], [place], [id number] Calculated very low density lipoprotein (VLDL) cholesterol measurementOrdered By: Vik Zimmer on 08-25-2024 Calculated very low density lipoprotein (VLDL) cholesterol measurement 9 mg/dL 5-40 [facility] Carbon dioxide, total [Moles /volume] in Central venous bloodOrdered By: Vik Zimmer on 08-25-2024 CO2 [Moles/Vol] 25.4 mmol/L 21.0-32.0 [facility] Chloride assayOrdered By: Lenin Zimmer on 08-25-2024 Chloride [Moles/Vol] 106 mmol/L 98-108 [facility] Comprehensive Metabolic Prof ilon 08-25-2024 Albumin [Mass/Vol] 4.4 g/dL Normal 3.5-5.0 [facility] Comment on above: Order Comment: Order Date: 08/21/24 Order Info: [id number] - CMP Order Info: [id number] - LIPID Order Info: [id number] - TSH Performed By: #### L 500.4050, L100.0500, L500.4100, L501.9520 #### [facility] [address] [place], [place], [id number] Albumin/Globulin [Mass ratio] 1.7 {ratio} Normal 0.9-2.4 [facility] Comment on above: Order Comment: Order Date: 08/21/24 Order Info: [id number] - CMP Order Info: [id number] - LIPID Order Info: [id number] - TSH Performed By: #### L 500.4050, L100.0500, L500.4100, L501.9520 #### [facility] [address] [place], [place], [id number] ALK PHOS 47 U/L Normal 35-104 [facility] Comment on above: Order Comment: Order Date: 08/21/24 Order Info: [id number] - CMP Order Info: [id number] - LIPID Order Info: [id number] - TSH Performed By: #### L 500.4050, L100.0500, L500.4100, L501.9520 #### [facility] [address] [place], [address] ALT [Catalytic activity/Vol] 16 U/L Normal <=34 [facility] Comment on above: Order Comment: Order Date: 08/21/24 Order Info: [id number]- - CMP Order Info: - LIPID Order Info: 3 - TSH Performed By: #### L 500.4050, L100.0500, L500.4100, L501.9520 #### [facility] [address] [place], [address] AST [Catalytic activity/Vol] 17 U/L Normal <=31 [facility] Comment on above: Order Comment: Order Date: 08/21/24 Order Info: [id number] - CMP Order Info: [id number] - LIPID Order Info: 3 - TSH Performed By: #### L 500.4050, L100.0500, L500.4100, L501.9520 #### [facility] [address] [facility] [place], [address] Bilirubin [Mass/Vol] 0.29 mg/dL Normal 0.00-1.30 [facility] Comment on above: Order Comment: Order Date: 08/21/24 Order Info: [id number] - CMP Order Info: [id number] - LIPID Order Info: 3 - TSH Performed By: #### L 500.4050, L100.0500, L500.4100, L501.9520 #### [facility] [address] [facility] [place], [address] BUN/CRE 16.1 RATIO Normal 10-20 [facility] Comment on above: Order Comment: Order Date: 08/21/24 Order Info: [id number] - CMP Order Info: [id number] - LIPID Order Info: 3 - TSH Performed By: #### L 500.4050, L100.0500, L500.4100, L501.9520 #### [facility] [address] [place], [address] Calcium [Mass/Vol] 9.6 mg/dL Normal 7.6-11.0 [facility] Comment on above: Order Comment: Order Date: 08/21/24 Order Info: 785- - CMP Order Info: [id number] - LIPID Order Info: [id number] - TSH Performed By: #### L 500.4050, L100.0500, L500.4100, L501.9520 #### [facility] [address] [place], [address] Chloride [Moles/Vol] 106 mmol/L Normal 98-108 [facility] Comment on above: Order Comment: Order Date: 08/21/24 Order Info: [id number] - CMP Order Info: [id number] - LIPID Order Info: 3 - TSH Performed By: #### L 500.4050, L100.0500, L500.4100, L501.9520 #### [facility] [address] [place], [address] CO2 [Moles/Vol] 25.4 mmol/L Normal 21.0-32.0 [facility] Comment on above: Order Comment: Order Date: 08/21/24 Order Info: 07 - CMP Order Info: [id number] - LIPID Order Info: 63 - TSH Performed By: #### L 500.4050, L100.0500, L500.4100, L501.9520 #### [facility] [address] [place], [address] Creatinine [Mass/Vol] 0.85 mg/dL Normal 0.70-1.20 [facility] Comment on above: Order Comment: Order Date: 08/21/24 Order Info: 0786- - CMP Order Info: [id number] - LIPID Order Info: [id number] - TSH Performed By: #### L 500.4050, L100.0500, L500.4100, L501.9520 #### [facility] [address] [place], [address] GAP 10 Normal 5-15 [facility] Comment on above: Order Comment: Order Date: 08/21/24 Order Info: [id number] - CMP Order Info: - LIPID Order Info: [id number] - TSH Performed By: #### L 500.4050, L100.0500, L500.4100, L501.9520 #### [facility] [address] [place], [address] GFR/1.73 sq M.predicted among non-blacks MDRD (S/P/Bld) [Vol rate/Area] 81 mL/min/{1.73_m2} Normal >60 [facility] Comment on above: Order Comment: Order Date: 08/21/24 Order Info: [id number] - CMP Order Info: [id number] - LIPID Order Info: [id number] - TSH Result Comment: mL/m in/1.73m2 CKD-EPI Creatinine Equation (2020) Performed By: #### L 500.4050, L100.0500, L500.4100, L501.9520 #### [facility] [address] [place], [address] Globulin (S) [Mass/Vol] 2.6 g/dL Normal 2.2-4.2 [facility] Comment on above: Order Comment: Order Date: 08/21/24 Order Info: 07 - CMP Order Info: [id number] - LIPID Order Info: [id number] - TSH Performed By: #### L 500.4050, L100.0500, L500.4100, L501.9520 #### [facility] [address] [place], [address] Glucose [Mass/Vol] 89 mg/dL Normal 70-99 [facility] Comment on above: Order Comment: Order Date: 08/21/24 Order Info: 0786- - CMP Order Info: [id number] - LIPID Order Info: [id number] - TSH Performed By: #### L 500.4050, L100.0500, L500.4100, L501.9520 #### [facility] [address] [place], [address] Potassium [Moles/Vol] 4.1 mmol/L Normal 3.3-5.1 [facility] Comment on above: Order Comment: Order Date: 08/21/24 Order Info: 07- - CMP Order Info: [id number] - LIPID Order Info: 3 - TSH Performed By: #### L 500.4050, L100.0500, L500.4100, L501.9520 #### [facility] [address] [place], [address] Sodium [Moles/Vol] 142 mmol/L Normal 133-145 [facility] Comment on above: Order Comment: Order Date: 08/21/24 Order Info: 0786- - CMP Order Info: [id number] - LIPID Order Info: 3 - TSH Performed By: #### L 500.4050, L100.0500, L500.4100, L501.9520 #### [facility] [address] [place], [address] T PROT 7.0 g/dL Normal 5.9-8.4 [facility] Comment on above: Order Comment: Order Date: 08/21/24 Order Info: [id number] - CMP Order Info: [id number] - LIPID Order Info: 3 - TSH Performed By: #### L 500.4050, L100.0500, L500.4100, L501.9520 #### [facility] [address] [place], [address] Urea nitrogen [Mass/Vol] 14 mg/dL Normal 4-19 [facility] Comment on above: Order Comment: Order Date: 08/21/24 Order Info: [id number] - CMP Order Info: [id number] - LIPID Order Info: [id number] - TSH Performed By: #### L 500.4050, L100.0500, L500.4100, L501.9525 #### [facility] [address] [place], [address] Erythrocyte distribution wid th ratioOrdered By: Vik Zimmer on 08-25-2024 Erythrocyte distribution width (RBC) [Ratio] 13.8 % 11.6-14.6 [facility] Erythrocyte distribution wid th standard deviationOrdered By: Vik Zimmer on 08-25-2024 Erythrocyte distribution width (RBC) [Ratio] 48.0 fl High 35.1-43.9 [facility] Glomerular filtration rate ( GFR) estimation/1.73 sq m using serum, plasma, or whole bOrdered By: Vik Zimmer on 08-25-2024 GFR/1.73 sq M.predicted among non-blacks MDRD (S/P/Bld) [Vol rate/Area] 81 mL/min/{1.73_m2} >60 [facility] Comment on above: mL/min/1.73m2 CKD-EP I Creatinine Equation (2020) Hematocrit Auto (Bld) [Volum e fraction]Ordered By: Vik Zimmer on 08-25-2024 Hematocrit (Bld) [Volume fraction] 38.8 % 37-47 [facility] Hemoglobin measurementOrdere d By: Vik Zimmer on 08-25-2024 Hemoglobin (Bld) [Mass/Vol] 12.8 g/dL 12.0-15.0 [facility] LDL calc ser/plasOrdered By: Vik Zimmer on 08-25-2024 Cholesterol in LDL [Mass/Vol] 147 mg/dL [facility] Comment on above: Znikuoneqd=611-611 m g/dL & Higher Lwol=421 mg/dL or greater Laboratory - Chemistry and C hemistry - challengeOrdered By: Vik Zimmer on 08-25-2024 AST [Catalytic activity/Vol] 17 U/L <32 [facility] Lipid Profileon 08-25-2024 CHOL:HDL 2.73 Normal [facility] Comment on above: Order Comment: Order Date: 08/21/24 Order Info: [id number] - CMP Order Info: [id number] - LIPID Order Info: [id number] - TSH Performed By: #### L 500.4050, L100.0500, L500.4100, L501.9520 #### [facility] [address] [place], [address] Cholesterol [Mass/Vol] 246 mg/dL High <=200 [facility] Comment on above: Order Comment: Order Date: 08/21/24 Order Info: 0786- - CMP Order Info: [id number] - LIPID Order Info: 3 - TSH Result Comment: Chol esterol level, Desirable <200 mg/dL Borderline high cholesterol 200-239 mg/dL High cholesterol >=240 mg/dL Recommendations of the NCEP Adult Treatment Panel for the following risk-cutoff thresholds for the [place] population. Performed By: #### L 500.4050, L100.0500, L500.4100, L501.9520 #### [facility] [address] [place], [address] Cholesterol in HDL [Mass/Vol] 90 mg/dL Normal [facility] Comment on above: Order Comment: Order Date: 08/21/24 Order Info: [id number] - CMP Order Info: [id number] - LIPID Order Info: 3 - TSH Result Comment: Mis onal Cholesterol Education Program (NCEP) guidelines: <40 mg/dL: Low HDL-cholesterol (major risk factor for CHD) >= 60 mg/dL: High HDL-cholesterol (negative risk factor for CHD) HDL-cholesterol is affected by a number of factors, e.g. smoking, exercise, hormones, sex and age. Performed By: #### L 500.4050, L100.0500, L500.4100, L501.9520 #### [facility] [address] [place], [address] Cholesterol in LDL [Mass/Vol] 147 mg/dL Normal [facility] Comment on above: Order Comment: Order Date: 08/21/24 Order Info: 0786-1 - CMP Order Info: [id number] - LIPID Order Info: [id number] - TSH Result Comment: Bord zepkku=610-888 mg/dL Higher Ncxw=138 mg/dL or greater Performed By: #### L 500.4050, L100.0500, L500.4100, L501.9520 #### [facility] [address] [place], [address] Cholesterol in VLDL [Mass/Vol] 9 mg/dL Normal 5-40 [facility] Comment on above: Order Comment: Order Date: 08/21/24 Order Info: 0786- - CMP Order Info: [id number] - LIPID Order Info: [id number] - TSH Performed By: #### L 500.4050, L100.0500, L500.4100, L501.9520 #### [facility] [address] [place], [address] Triglyceride [Mass/Vol] 44 mg/dL Normal [facility] Comment on above: Order Comment: Order Date: 08/21/24 Order Info: [id number] - CMP Order Info: [id number] - LIPID Order Info: [id number] - TSH Result Comment: The drugs N-Acetylcysteine and Metamizole may falsely depress this assay. Normal range: <150 mg/dL Borderline High: 150-199 mg/dL High: 200-499 mg/dL Very High: >500 mg/dL Performed By: #### L 500.4050, L100.0500, L500.4100, L501.9520 #### [facility] [address] [place], [address] MCV (mean corpuscular volume ) determinationOrdered By: Vik Zimmer on 08-25-2024 MCV (RBC) [Entitic vol] 94.2 fL 81-99 [facility] Mean corpuscular hemoglobin (MCH) determinationOrdered By: Vik Zimmer on 08-25-2024 MCH (RBC) [Entitic mass] 31.1 pg 27.0-32.0 [facility] Mean corpuscular hemoglobin concentration (MCHC) determinationOrdered By: Vik Zimmer on 08-25-2024 MCHC (RBC) [Mass/Vol] 33.0 g/dL 32-36 [facility] Mean platelet volume determi nationOrdered By: Vik Zimmer on 08-25-2024 Platelet mean volume (Bld) [Entitic vol] 11.8 fL 6.2-12.0 [facility] Platelet countOrdered By: Lenin Zimmer on 08-25-2024 Platelets (Bld) [#/Vol] 143 10*3/uL Low 150-450 [facility] Potassium measurement (mass/ volume)Ordered By: Vik Zimmer on 08-25-2024 Potassium (Unsp spec) [Mass/Vol] 4.1 mmol/L 3.3-5.1 [facility] RBC Auto (Bld) [#/Vol]Ordere d By: Vik Zimmer on 08-25-2024 RBC (Bld) [#/Vol] 4.12 10*6/uL Low 4.2-5.4 [facility] Screening total cholesterol/ high density lipoprotein (HDL) cholesterol ratioOrdered By: Vik Zimmer on 08-25-2024 Cholesterol.total/Cholest joesph in HDL [Mass ratio] 2.73 {ratio} [facility] Serum creatinine measurement (mass/volume)Ordered By: Vik Zimmer on 08-25-2024 Creatinine [Mass/Vol] 0.85 mg/dL 0.70-1.20 [facility] Serum globulin measurementOr dered By: Vik Zimmer on 08-25-2024 Globulin (S) [Mass/Vol] 2.6 g/dL 2.2-4.2 [facility] Serum glucose measurement (m ass/volume)Ordered By: Vik Zimmer on 08-25-2024 Glucose [Mass/Vol] 89 mg/dL 70-99 [facility] Serum or plasma alanine purcell otransferase (ALT) measurementOrdered By: Vik Zimmer on 08-25-2024 ALT [Catalytic activity/Vol] 16 U/L <35 [facility] Serum or plasma albumin lashay urement (mass/volume)Ordered By: Vik Zimmer on 08-25-2024 Albumin [Mass/Vol] 4.4 g/dL 3.5-5.0 [facility] Serum or plasma albumin/glob ulin mass ratioOrdered By: leigh ann Mesha on 08-25-2024 Albumin/Globulin [Mass ratio] 1.7 {ratio} 0.9-2.4 [facility] Serum or plasma alkaline emmanuel sphatase measurementOrdered By: [facility] on 08-25-2024 ALP [Catalytic activity/Vol] 47 U/L 35-104 [facility] Serum or plasma calcitriol m easurement (mass/volume)Ordered By: [facility] 08-[facility]-2024 1,25-dihydroxyvitamin D3 [Mass/Vol] 35.2 pg/mL 24.8-81.5 [facility] Comment on above: Performed at: [employer] - [address] [id number] Director: Bebeto Valdez MD, Phone: [phone] Serum or plasma calcium lashay urement (mass/volume)Ordered By: Vik Zimmer on 08-25-2024 Calcium [Mass/Vol] 9.6 mg/dL 7.6-11.0 [facility] Serum or plasma cholesterol in HDL measurement (mass/volume)Ordered By: Vik Zimmer on 08-25-2024 Cholesterol in HDL [Mass/Vol] 90 mg/dL >40 [facility] Comment on above: National Cholesterol Education Program (NCEP) guidelines:<40 mg/dL: Low HDL-cholesterol (major risk factor for CHD)>= 60 mg/dL: High HDL-cholesterol (negative risk factor for CHD)HDL-cholesterol is affected by a number of factors, e.g. smoking, exercise, hormones, sex and age. Serum or plasma cholesterol measurement (mass/volume)Ordered By: Vik Mesha on 08-25-2024 Cholesterol [Mass/Vol] 246 mg/dL High <201 [facility] Comment on above: Cholesterol level, D esirable <200 mg/dLBorderline high cholesterol 200-239 mg/dLHigh cholesterol >=240 mg/dLRecommendations of the NCEP Adult Treatment Panel for the following risk-cutoff thresholds for the [place] population. Serum or plasma urea nitroge n measurement (mass/volume)Ordered By: Vik Mesha on 08-25-2024 Urea nitrogen [Mass/Vol] 14 mg/dL 4-19 [facility] Sodium levelOrdered By: Konrad Rowlandke on 08-25-2024 Sodium [Moles/Vol] 142 mmol/L 133-145 [facility] TSH DL <= 0.005 mIU/L QnOrde red By: Vik Rowlnadke on 08-25-2024 TSH Qn 1.230 uIU/mL 0.300-4.200 [facility] Thyroid Stim Hormone (TSH)on 08-25-2024 TSH 1.230 uIU/mL Normal 0.300-4.200 [facility] Comment on above: Order Comment: Order Date: 08/21/24 Order Info: [id number] - CMP Order Info: [id number] - LIPID Order Info: [id number] - TSH Performed By: #### L 500.4050, L100.0500, L500.4100, L501.9520 #### [facility] [address] [place], [address] Total proteinOrdered By: Sol Rowlandke on 08-25-2024 Protein [Mass/Vol] 7.0 g/dL 5.9-8.4 [facility] Triglycerides measurementOrd ered By: Vik Mesha on 08-25-2024 Triglyceride [Mass/Vol] 44 mg/dL <199 [facility] Comment on above: The drugs N-Acetylcy steine and Metamizole may falsely depress this assay. Normal range: <150 mg/dLBorderline High: 150-199 mg/dLHigh: 200-499 mg/dLVery High: >500 mg/dL White blood cell (WBC) count Ordered By: Konradleigh ann Zimmer on 08-25-2024 WBC (Bld) [#/Vol] 4.9 10*3/uL 4.4-11.0 [facility] SCRN MAMM (CAD)W/FARTUN BILATo n 10-05-2023 SCRN MAMM (CAD)W/FARTUN BILAT [facility] [address] [place] [address] SCRN MAMM (CAD)W/FARTUN BILAT MR#: [id number] Acct: [id number] Name: TWILA LINDQUIST Rep #: [id number] : 1970 F 53 From: Logan cespedes MD PCP: Dr. Trini Soto MD Status: [facility] Study: SCRN MAMM (CAD)W/FARTUN BILAT Date of Exam: 09/09 08/31 Exam# [id number] Ordering Dr: Debbi Huitron MD [id number] MAMMOGRAPHY - BILATERAL SCREENING REASON FOR EXAM: [...] delay biopsy of a clinically suspicious abnormality. [id number] Electronically Signed: Logan Martínez MD at 8:27 EDT , CC: Dr. Debbi Huitron MD; Dr. 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 Science Teacher: Signed Normal [facility] Vital Signs Date Time Vital Sign Value Performing Clinician Faci lity 08-26-2021 09:08-0400 Body height 170.8 cm Trini Soto MD Work Phone: [facility] 08-26-2021 09:08-0400 Body weight 58.42 kg Trini Soto MD Work Phone: [facility] 08-26-2021 09:08-0400 Diastolic blood pressure 74 mm[Hg] Trini Soto MD Work Phone: [facility] 08-26-2021 09:08-0400 Heart rate 64 /min Trini Soto MD Work Phone: [facility] 08-26-2021 09:08-0400 Respiratory rate 12 /min Trini Soto MD Work Phone: [facility] 08-26-2021 09:08-0400 Systolic blood pressure 102 mm[Hg] Trini Soto MD Work Phone: [facility] Encounters Encounter Date Encounter Type Care Provider Facility Start: 08-30-2024 Encounter for gynecological examination (general) (routine) without abnormal findings Vik Zimmer [facility] Start: 08-25-2024 End: 08-25-[address] Trini Soto MD Work Phone: [facility] Start: 08-25-2024 End: 08-25-[address] Vik Zimmer MD [facility] Work Phone: Start: 08-25-2024 End: 08-25-2024 ambulatory Trini Soto Facility:[facility] Start: 08-01-2024 End: 09-01-2024 ambulatory Trini Soto MD Work Phone: [facility] Start: 10-05-2023 End: 10-05-2023 ambulatory Debbi Huitron Facility:[facility] Start: 09-01-2023 ambulatory Trini nolan MD Work Phone: Internal Medicine [facility] Start: 10-02-2022 End: 10-02-2022 Patient encounter procedure DEBBI HUITRON MD [facility] Start: 09-23-2022 ambulatory Trini nolan MD Work Phone: Internal [facility] Start: 09-14-2022 ambulatory DEBBI HUITRON MD Facilit y:B Start: 01-30-2022 Telephone encounter Trini so MD Work Phone: [facility] Comment on above: Patient Update Start: 08-26-2021 End: 08-26-2021 Patient encounter procedure Trini Soto MD Work Phone: [facility] Comment on above: Wellness examination (Primary Dx) Start: 08-26-2021 End: 08-26-2021 Patient encounter status Trini Soto MD Work Phone: [facility] Start: 08-19-2021 End: 08-19-2021 Patient encounter procedure [facility]-Outpatient Breast Imaging Procedures Date Procedure Procedure Detail [...] Activity Detail Author Start: 12-14-2029 Colonoscopy COLONOSCOPY [facility] Start: 12-14-2029 COLORECTAL CANCER SCREENING COLORECTAL CANCER SCREENING [facility] Start: 12-14-2029 Screening for malign ant neoplasm of colon [facility] Start: 03-01-2028 Urine microalbumin profile [facility] Start: 08-26-2026 Lipid panel Lipid Screening [facility] Start: 08-26-2026 LIPID SCREEN LIPID SCREEN [facility] Start: 10-09-2024 Influenza vaccination Influenza Vacc ine (#1) [facility] Start: 08-26-2024 DIABET[facility] SCREEN [facility] Start: 08-26-2024 Diabetes Screening Diabetes Screenin g [facility] Start: 07-30-2024 HPV TESTING HPV TESTING [facility] Start: 07-26-2024 PAP TESTING PAP TESTING [facility] Start: 10-10-2023 Influenza vaccination Influenza Vacc ine (#1) [facility] Start: 03-19-2023 LIPID SCREEN LIPID SCREEN [facility] Start: 10-09-2022 Covid-19 Vaccine ( season) Covid-19 Vaccine () [facility] Start: 10-09-2022 Influenza vaccination INFLUENZA (#1) [facility] Start: 08-26-2022 Adult depression screening assessment DEPRESSION SCREENING [facility] Start: 08-26-2022 HEPATITIS C SCREENING HEPATITIS C [facility] Comment on above: Postponed from 05/20 (Declined at this time) Start: 08-19-2022 Mammography MAMMOGRAM [facility] Start: 08-19-2022 Screening for malign ant neoplasm of breast Mammogram Screening [facility] Start: 07-26-2022 Screening for malign ant neoplasm of cervix Cervical Cancer Screening [facility] Start: 02-08-2022 DEPRESSION ASSESSMENT DEPRESSION ASS ESSMENT [facility] Start: 10-09-2021 Influenza vaccination INFLUENZA (#1) [facility] Start: 09-02-2021 COVID-19 VACCINE (5 - Booster for Pfizer series) COVID-19 VACCINE (5 - Booster for Pfizer series) [facility] Start: 09-02-2021 COVID-19 VACCINE (5 - Pfizer series) COVID-19 VACCINE (5 - Pfizer series) [facility] Start: 08-26-2021 End: 10-26-2021 25-hydroxyvitamin D3 [Mass/volume] in Serum or Plasma [facility] Work Phone: Comment on above: Expected: 08/26/2021 , Expires: 10/26/2021 Start: 08-26-2021 End: 10-26-2021 CBC W Auto Differential panel - Blood [facility] Work Phone: Comment on above: Expected: 08/26/2021 , Expires: 10/26/2021 Start: 08-26-2021 End: 10-26-2021 Comprehensive metabolic 2000 panel - Serum or Plasma [facility] Work Phone: Comment on above: Expected: 08/26/2021 , Expires: 10/26/2021 Start: 08-26-2021 End: 10-26-2021 Lipid 1996 panel - Serum or Plasma [facility] Work Phone: Comment on above: Expected: 08/26/2021 , Expires: 10/26/2021 Start: 03-19-2021 DIABETES SCREEN DIABETES SCREEN [facility] Start: 02-08-2021 DEPRESSION ASSESSMENT DEPRESSION ASS ESSMENT [facility] Start: 2018 Pneumococcal Vaccine : 50+ (1 of 1 - PCV) Pneumococcal Vaccine: 50+ (1 of 1 - PCV) [facility] Start: 2018 SHINGRIX VACCINE (1 of 2) SHINGRIX VACCINE (1 of 2) [facility] Start: 2013 COLOGUARD (FIT-DNA) COLOGUARD (FIT-D NA) [facility] Start: [address] COLONOGRAPHY [facility] Start: 2013 FECAL OCCULT BLOOD FECAL OCCULT BLOO D [facility] Start: 2013 Screening for malign ant neoplasm of colon [facility] Start: 2013 SIGMO[facility]OSCOPY [facility] Start: 05-21-1987 Hepatitis B Vaccine (1 of 3 - 19+ 3-dose series) Hepatitis B Vaccine (1 of 3 - 19+ 3-dose series) [facility] Start: 1986 Anxiety Screening Anxiety Screening [facility] Start: 1986 Depression Screening Depression Scre ening [facility] Start: 1986 HEPATITIS C SCREENING HEPATITIS C SC [facility] Start: 1986 Hepatitis C screening Hepatitis C [facility] Start: 1970 HEPATITIS B (1 of 3 - 3-dose series) HEPATITIS B (1 of 3 - 3-dose series) [facility] End: 09-30-2024 DBT Breast - bilateral screening CRISPIN SCREENING W FARTUN Radiology Routine Encounter for screening mammogram for breast cancer 1 Occurrences starting 09/01/2023 until 09/30/2024 [facility] Work Phone: Comment on above: 1 Occurrences starti ng 09/01/2023 until 09/30/2024 End: 08-31-2025 DBT Breast - bilateral screening CRISPIN SCREENING W FARTUN Radiology Routine Encounter for screening mammogram for breast cancer 1 Occurrences starting 08/01/2024 until 08/31/2025 [facility] Work Phone: Comment on above: 1 Occurrences starti ng 08/01/2024 until 08/31/2025 End: 10-23-2023 CRISPIN SCREENING CRISPIN SCREENING Radiology Routine Encounter for screening mammogram for breast cancer 1 Occurrences starting 09/23/2022 until 10/23/2023 [facility] Work Phone: Comment on above: 1 Occurrences starti ng 09/23/2022 until 10/23/2023 Immunizations Immunization Date Immunization Notes Care Provider [facility] 12-25-2019 influenza virus vaccine, unspecified formulation Trini Soto MD Work Phone: [facility] 12-07-2019 influenza, seasonal, injectable Trini Soto MD Work Phone: [facility] 03-01-2018 tetanus toxoid, reduced diphtheria toxoid, and acellular pertussis vaccine, adsorbed Trini Soto MD Work Phone: [facility] Work Phone: Payers Date Payer Category Payer Unknown [id number] 2023 Self-pay [id number] 2023 Unknown [id number] 2023 Private Health Insurance [facility] [id number] 2022 Unknown [id number] 2019 Unknown [employer] PPO [id number] 2019-Present [phone] [address] [place] [address] PPO [id number] 2019 Unknown [id number] 1968 Unknown [id number] Private Health Insurance [facility] [id number] Unknown [id number] Unknown [id number] Unknown 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) [facility] Start: 1970 Sex Assigned At Not on file [facility] Start: 08-16-2021 End: 08-26-2021 Exposure to SARS-CoV-2 (event) Not sure [facility] Start: 1970 Sex Assigned At Female A [facility] Start: 02-24-2018 Tobacco use and exposure Smokeless tobacco non-user [facility] Start: 08-26-2021 End: 03-06-2022 History of Social function [facility] Start: 08-26-2021 End: 03-06-2022 Tobacco use panel [facility] Adult Depression Screening Assessment 0 [facility] Tobacco smoking stat us NHIS Unknown if ever smoked [facility] Work Phone: Functional Status Date Assessment Result Facility 06-30-2014 Are you deaf, or do you have serious difficulty hearing No 06/30/2014 11:08 AM Vidya Baumann LPN No [facility] 06-30-2014 Are you blind, or do you have serious difficulty seeing, even when wearing glasses No 06/30/2014 11:08 AM Vidya Baumann LPN No [facility] 06-30-2014 Do you have serious difficulty walking or climbing stairs No 06/30/2014 11:08 AM Vidya Baumann LPN No [facility] 06-30-2014 Do you have difficul ty dressing or bathing No 06/30/2014 11:08 AM Vidya Baumann LPN No [facility] 06-30-2014 Because of a physica l, mental, or emotional condition, do you have difficulty doing errands alone such as visiting a physician's office or shopping No 06/30/2014 11:08 AM Vidya Baumann LPN No [facility] Mental Status Date Assessment Result Facility 06-30-2014 Because of a physica l, mental, or emotional condition, do you have serious difficulty concentrating, remembering, or making decisions No 06/30/2014 11:08 AM Vidya Baumann LPN No [facility] Clinical Notes 08-26-2021 to 08-01-2024 Telephone Encounter - Trini Soto MD - 01/30/2022 3:31 PM ESTTelephone Encounter - Lilliam Ness RN - 01/30/2022 3:00 PM Shabbir Soto MD - 08/26/2021 9:00 AM EDT Note Date & Type Note Facility 08-01-2024 Note Patient Outreach (FA MPWS) TWILA LINDQUIST ([id number]) 1970 F Date Time Provider Department 08/01/24 TRINI SOTO During your visit today, we recorded the following information about you: Allergies As of Date: 08/01/2024 Noted Allergy Reaction PENICILLINS 03/20/2004 Date Reviewed: 08/26/2021 Reviewed by: Reny Trevizo MA - Fully Assessed Visit Diagnosis:Encounter for screening mammogram for breast cancer [Z12.31] Order(s):[facility] SCREENING W FARTUN [[id number]] Order #: [id number] FUTURE Meds Comments as of 08/26/2021: Takes Probiotic daily. Problem List As Of Date 08/01/2024 Noted Resolved Thrombocytopenia, unspecified (HCC) [D69.6] 03/20/2004 Encounter Status:Closed by LISA ROMAN on 09/01/24 [facility] 01-30-2022 Miscellaneous Notes Formattin g of [...] Lilliam Ness RN documented in this encounter [facility] 08-26-2021 History of Presen t illness [...] will be starting a new job at [employer] ([employer] in September. Pt has one son age 19, starting College in [place] for photography GI/Uro - No bowel, Gi, or urinary issues. Takes daily OTC Probiotic. Colonoscopy done by Dr. Serrano Dec 2019. Possible FHx of Colon Cancer. Cardio - Denies any chest pain, dizziness, or SOB. 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 Had [...] Procedure Laterality Date COLONOSCOP W/ OR W/O BRS SPEC 12/15/2019 Colonoscopy NONE Family History FAMILY [...] Past Histories independently gathered by the clinical support specialist and the remaining scribed note accurately describes my personal service to the patient. Trini Soto MD The documentation for this note was completed by Reny Trevizo Ma acting as scribe for Trini Soto MD. August 26, 2021 9:15 AM. Reny Trevizo Ma documented in this encounter [facility] Evaluation + Plan note No data available for this section [facility] Evaluation note Diagnosis Wellness examination- Primary documented in this encounter [facility] noteNo assessment information availableWMary [facility] Work Phone: Evaluation note* Diagnosis Encounter for screening mammogram for breast cancer documented in this encounter [facility] note* Diagnosis Encounter for screening mammogram for breast cancer documented in this encounter [facility] note* Diagnosis Encounter for screening mammogram for breast cancer [facility] No data available for this section [facility] Progress note No data available for this section [facility] Reason for referral (narrative)* Diagnostic Procedure Only (Routine) - Pending Review Specialty Diagnoses / Procedures Referred By Aj jameson Referred To Contact [facility] Diagnoses Encounter for screening mammogram for breast cancer Procedures CRISPIN SCREENING SCREENING MAMMOGRAPHY BI 2-VIEW BREAST INC Trini Jeffers MD [address] [place] [address] [facility] [address] [place] [id number] Referral ID Status Reason Start Date Expiration Date Visits Requested Visits Authorized [id number] Pending Review Auto-Generat ed Referral 09/23/2022 10/23/2023 [address] [facility] for referral (narrative)* Diagnostic Procedure Only (Routine) - New Request Specialty Diagnoses / Procedures Referred By Aj jameson Referred To Contact [facility] Diagnoses Encounter for screening mammogram for breast cancer Procedures CRISPIN SCREENING W FARTUN SCREENING DIGITAL BREAST TOMOSYNTHESIS BI SCREENING MAMMOGRAPHY BI 2-VIEW BREAST INC Trini Jeffers MD [address] [place] [place] [address] [facility] [address] [place] [address] Referral ID Status Reason Start Date Expiration Date Visits Requested Visits Authorized [id number] New Request Auto-Generat ed Referral 09/01/2023 09/30/2024 1 1 [facility]ative)No reason for referral information availableWMary [facility]an [facility] Work Phone: Advance Directives No Advanced Directives Records FoundDocuments on File Type Date Recorded 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 Advance Directive(s) 12/15/2019 6:54 AM Advance Directive(s) 12/08/2019 1:25 PM Chief Complaint and Reason for Visit Chief Complaint SCREENING Summary Purpose Family History No Family History Records Found No data available for this section No Family History Records FoundNo Family History Records Found Additional Source Comments Source Comments (unrecognize d section and content) In the event this informatio n is protected by the Federal Confidentiality of Alcohol and Drug Abuse Patient Records regulations: The Federal rules restrict any use of the information to criminally investigate or prosecute any alcohol or drug abuse patient.[facility] the event this information is protected by the Federal Confidentiality of Alcohol and Drug Abuse Patient Records regulations: The Federal rules restrict any use of the information to criminally investigate or prosecute any alcohol or drug abuse patient.[facility] the event this information is protected by the Federal Confidentiality of Alcohol and Drug Abuse Patient Records regulations: The Federal rules restrict any use of the information to criminally investigate or prosecute any alcohol or drug abuse patient.[facility] the event this information is protected by the Federal Confidentiality of Alcohol and Drug Abuse Patient Records regulations: The Federal rules restrict any use of the information to criminally investigate or prosecute any alcohol or drug abuse patient.[facility] Hospital[facility] the event this information is protected by the Federal Confidentiality of Alcohol and Drug Abuse Patient Records regulations: The Federal rules restrict any use of the information to criminally investigate or prosecute any alcohol or drug abuse patient.[facility] Reason for Visit (unrecogniz ed section and content) Reason Comments Wellness Specialty Diagnoses / Procedures Referred By Contac t Referred To Contact Family Practice / FAMILY MEDICINE Diagnoses Annual physical exam Annual / Physical Procedures OFFICE/OUTPATIENT ESTABLISHED MOD MDM 30-39 MIN 4C MD David Gold, Trini Villalba MD [address] [place] [address] Referral ID Status Reason Start Date Expiration Date Visits Re quested Visits Authorized [id number] Closed 08/26/2021 02/07/2022 1 1 Reason Comments Patient Update Care Teams (unrecognized sec tion and content) 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 Trini Soto MD Family Provider Active Dr. Trini Soto MD Primary Care Provider Active Team Status: Inactive Member Role/Relationship Status Dates Dr. 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 01/25/24 Goals (unrecognized section and content) Goals may be documented in a n alternate sectionGoals may be documented in an alternate sectionGoals may be documented in an alternate section No data available for this sectionGoals may be documented in an alternate section INFORMATION SOURCE (unrecogn ized section and content) DATE CREATED AUTHOR 09/14/2022 [facility] DATE CREATED AUTHOR AUTHOR'S ORGANIZ ATION 09/01/2024 [facility] DATE CREATED AUTHOR AUTHOR'S ORGANIZ ATION 09/02/2024 [facility] FOR RECORDS PERTAINING TO PATIENTS WHO [...] BE BASED ON THE PRIMARY CLINICAL RECORDS. [facility] [employer] [facility]. provides no warranty or guarantee of the accuracy or completeness of information in this document.
== END | disposition home or self-care (01) ==
LOC: OPBI 07:36
PROVIDERS: PCP Family Medicine; Referring Provider Obstetrics & Gynecology Gynecology; Visit Provider Obstetrics & Gynecology Gynecology
DX: Z12.31 Encounter for screening mammogram for malignant neoplasm of breast (principal)
CPT/HCPCS: 77063; 77067